=== PATIENT | female | born 1985 | race Caucasian/White ===

== ENCOUNTER 2017-04-17 10:19 | Emergency (ER) | payer OTHER ==
[~2017-04-17] VITALS: Ht 160 cm; Wt 76.0 kg
[2017-04-17 10:30] VITALS: BP 152/102
== END 2017-04-17 13:40 | disposition left against medical advice (07) ==
LOC: EME 10:19
DX: M54.5 Low back pain (principal); W19.XXXA Unspecified fall, initial encounter; Z53.21 Procedure and treatment not carried out due to patient leaving prior to being seen by health care provider